=== PATIENT | male | born 2005 | race Caucasian/White ===

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

== ENCOUNTER 2024-02-25 03:59 | Emergency (ER) | payer OTHER ==
[2024-02-25] MEDS ORDERED: Lidocaine 2% with EPINEPHrine 1:100,000 20 ML MDV INFILT ONE (04:00)
[2024-02-25 04:21] VITALS: BP 145/97; PULSE 100
== END 2024-02-25 05:05 | disposition home or self-care (01) ==
LOC: FB.ED 03:59
DX: S61.212A Laceration without foreign body of right middle finger without damage to nail, initial encounter (principal); J45.909 Unspecified asthma, uncomplicated; Z79.51 Long term (current) use of inhaled steroids; Z91.09 Other allergy status, other than to drugs and biological substances; W25.XXXA Contact with sharp glass, initial encounter
CPT/HCPCS: 12002; 99282; 99283